=== PATIENT | male | born 1990 | race Caucasian/White ===

== ENCOUNTER 2024-12-14 20:25 | Emergency (ER) | payer MEDICAID ==
[~2024-12-14] VITALS: Ht 177.8 cm; Wt 78.0 kg
[2024-12-14 20:56] VITALS: O2SAT 99
[2024-12-14 21:51] VITALS: BP 122/78; PULSE 69; RESP 16; TEMP 36.9; O2SAT 100
[2024-12-15 00:04] LABS: BASOPHILS % 0.5 % (0.0-2.0); EOSINOPHILS % 0.4 % (0.0-5.0); HEMATOCRIT. 46.9 % (42.0-52.0); HEMOGLOBIN. 15.7 g/dL (14.0-18.0); LYMPHOCYTES % 13.7 % (20.0-50.0); MEAN CORPUSCULAR HEMOGLOBIN 30.3 pg (28.0-32.0); MEAN CORPUSCULAR HGB CONC 33.5 g/dL (31.0-37.0); MEAN CORPUSCULAR VOLUME 90.6 fL (80.0-94.0); MEAN PLATELET VOLUME 7.9 fl (7.4-10.4); MONOCYTES % 9.7 % (2.0-8.0); NEUTROPHILS % 75.7 % (40.0-76.0); PLATELET 302 x1000/uL (130-400); RED BLOOD CELL COUNT 5.17 mill/uL (4.7-6.1); RED CELL DISTRIBUTION WIDTH 12.7 % (11.6-14.6); WHITE BLOOD COUNT 12.5 x1000/uL (4.5-11.0)
[2024-12-15 00:18] LABS: CHLORIDE 98 mEq/L (98-107); POTASSIUM 3.9 mEq/L (3.5-5.1); SODIUM 139 mEq/L (136-145)
[2024-12-15 00:19] LABS: CALCIUM 9.8 mg/dL (8.7-10.4); CARBON DIOXIDE 34 mEq/L (21-32)
[2024-12-15 00:24] LABS: CREATININE 0.9 mg/dL (0.6-1.3); GLUCOSE 104 mg/dL (70-105); UREA NITROGEN BLOOD 8 mg/dL (9-23)
[2024-12-15 00:25] LABS: ETHANOL BLOOD < 10 mg/dL (<10)
[2024-12-15 00:26] LABS: ALANINE AMINOTRANSFERASE 27 IU/L (10-49); ALBUMIN 5.2 g/dL (3.2-4.8); ASPARTATE AMINOTRANSFERASE 19 IU/L (<34); BILIRUBIN DIRECT 0.2 mg/dL (<=3.0); BILIRUBIN TOTAL 0.7 mg/dL (0.1-1.0); PROTEIN TOTAL 7.8 g/dL (6.0-8.3)
[2024-12-15] MEDS: ONDANSETRON HCL 4MG/2ML INJ IM ONE (00:29)
[2024-12-15] MEDS: DICYCLOMINE HCL 10MG/ML 2ML VIAL IM ONE (00:29)
[2024-12-15] MEDS ORDERED: FAMO-135 MT (00:44)
[2024-12-15] MEDS ORDERED: MAG-55 MT (00:44)
== END 2024-12-15 01:00 | disposition home or self-care (01) ==
LOC: ER 20:25
DX: K29.70 Gastritis, unspecified, without bleeding (principal)
CPT/HCPCS: 80076; 80048; 80320; 83690; 85025; 36415; 99284; 96372; J0500; J2405; G0480

== ENCOUNTER 2024-12-19 12:29 | Emergency (ER) | payer MEDICAID ==
[~2024-12-19] VITALS: Ht 177.8 cm; Wt 77.1 kg
[~2024-12-19 12:29] MED LIST: FAMO-135 MT; MAG-55 MT
[2024-12-19 12:31] VITALS: O2SAT 99
[2024-12-19 12:51] VITALS: BP 115/69; PULSE 82; RESP 16; TEMP 36.6; O2SAT 100
[2024-12-19] MEDS: ACETAMINOPHEN 325MG TABLET PO ONE (14:51)
[2024-12-19] MEDS ORDERED: ACET-2708 MT (15:35)
== END 2024-12-19 15:50 | disposition home or self-care (01) ==
LOC: ER 12:29
DX: M25.562 Pain in left knee (principal); W18.30XA Fall on same level, unspecified, initial encounter; Y93.89 Activity, other specified; Y92.89 Other specified places as the place of occurrence of the external cause; Y99.8 Other external cause status
CPT/HCPCS: 73560; 99283; Z7610; L1830

== ENCOUNTER 2025-01-14 12:26 | Emergency (ER) | payer MEDICAID ==
[~2025-01-14] VITALS: Ht 175.3 cm; Wt 70.0 kg
[~2025-01-14 12:26] MED LIST changes: +ACET-2708 MT
[2025-01-14 12:42] VITALS: TEMP 37.2; O2SAT 100
[2025-01-14] MEDS ORDERED: ACET-2708 MT (13:36)
[2025-01-14] MEDS ORDERED: NAPR-1129 MT (13:36)
[2025-01-14 13:57] VITALS: BP 122/68; PULSE 83; RESP 16; O2SAT 100
== END 2025-01-14 14:03 | disposition home or self-care (01) ==
LOC: ER 12:26
DX: M25.562 Pain in left knee (principal)
CPT/HCPCS: 99282; Z7610

== ENCOUNTER 2025-03-08 09:33 | Emergency (ER) | payer MEDICAID ==
[~2025-03-08] VITALS: Ht 175.3 cm; Wt 75.0 kg
[~2025-03-08 09:33] MED LIST changes: +NAPR-1129 MT
[2025-03-08 09:41] VITALS: O2SAT 99
[2025-03-08 10:08] LABS: BASOPHILS % 0.4 % (0.0-2.0); EOSINOPHILS % 0.3 % (0.0-5.0); HEMATOCRIT. 40.9 % (42.0-52.0); HEMOGLOBIN. 13.7 g/dL (14.0-18.0); LYMPHOCYTES % 10.0 % (20.0-50.0); MEAN PLATELET VOLUME 7.1 fl (7.4-10.4); MONOCYTES % 11.1 % (2.0-8.0); NEUTROPHILS % 78.2 % (40.0-76.0); PLATELET 315 x1000/uL (130-400); RED BLOOD CELL COUNT 4.59 mill/uL (4.7-6.1); RED CELL DISTRIBUTION WIDTH 12.8 % (11.6-14.6)
[2025-03-08] MEDS: ONDANSETRON HCL 4MG/2ML INJ IV STA (10:08)
[2025-03-08] MEDS: MORPHINE SULFATE 4 MG/ML INJ (FOR IV/IM USE) IV STA (10:08)
[2025-03-08 10:20] LABS: INR 1.0
[2025-03-08 10:24] LABS: CREATININE 0.9 mg/dL (0.6-1.3); UREA NITROGEN BLOOD 18 mg/dL (9-23)
[2025-03-08] MEDS ORDERED: OXYC-100 MT (13:56)
[2025-03-08] MEDS: OXYCODONE HCL/ACETAMINOPHEN 5/325MG TABLET PO ONE (14:19)
[2025-03-08 15:10] VITALS: BP 128/63; PULSE 58; RESP 14; TEMP 36.4; O2SAT 99
== END 2025-03-08 15:30 | disposition home or self-care (01) ==
LOC: ER 09:44 → CMPBEDREQ 17:32
DX: S82.001A Unspecified fracture of right patella, initial encounter for closed fracture (principal); Z79.899 Other long term (current) drug therapy; X58.XXXA Exposure to other specified factors, initial encounter; Y93.89 Activity, other specified; Y92.89 Other specified places as the place of occurrence of the external cause; Y99.8 Other external cause status
CPT/HCPCS: 99285; 96374; 29505; 73700; 96375; 80048; 85025; 85610; 36415; 73560; 73590; J2405; J2270

== ENCOUNTER 2025-03-18 10:05 | Emergency (ER) | payer MEDICAID ==
[~2025-03-18] VITALS: Ht 180.3 cm; Wt 72.0 kg
[~2025-03-18 10:05] MED LIST changes: +OXYC-100 MT
[2025-03-18 10:10] VITALS: TEMP 36.7; O2SAT 97
[2025-03-18] MEDS ORDERED: ACET-2708 MT (10:55)
[2025-03-18] MEDS ORDERED: IBUP-2028 MT (10:55)
[2025-03-18] MEDS: KETOROLAC 15MG/ML VIAL IM ONE (11:08)
[2025-03-18 11:15] VITALS: BP 133/69; PULSE 66; RESP 18; O2SAT 99
== END 2025-03-18 11:08 | disposition home or self-care (01) ==
LOC: ER 10:05
DX: M25.561 Pain in right knee (principal); Z76.0 Encounter for issue of repeat prescription; Z79.899 Other long term (current) drug therapy
CPT/HCPCS: 96372; 99283; J1885; Z7610

== ENCOUNTER 2025-06-01 21:51 | Emergency (ER) | payer MEDICAID ==
[~2025-06-01] VITALS: Ht 177.8 cm; Wt 75.0 kg
[~2025-06-01 21:51] MED LIST changes: +IBUP-2028 MT
[2025-06-01 22:02] VITALS: O2SAT 98
[2025-06-01] MEDS ORDERED: IBUP-1455 MT (22:52)
[2025-06-01] MEDS ORDERED: CYCL10TA21 MT (22:52)
[2025-06-01] MEDS: CYCLOBENZAPRINE 10MG TABLET PO ONE (23:39)
[2025-06-01] MEDS: IBUPROFEN 600MG TABLET PO ONE (23:40)
[2025-06-01] MEDS: CYCLOBENZAPRINE 10MG TABLET PO NR (23:40)
[2025-06-01] MEDS: IBUPROFEN 600MG TABLET PO NR (23:41)
[2025-06-01 23:44] VITALS: BP 112/70; PULSE 98; RESP 16; TEMP 36.7; O2SAT 96
== END 2025-06-01 23:48 | disposition home or self-care (01) ==
LOC: ER 21:51
DX: M25.562 Pain in left knee (principal); W19.XXXA Unspecified fall, initial encounter; Y93.89 Activity, other specified; Y92.89 Other specified places as the place of occurrence of the external cause; Y99.8 Other external cause status
CPT/HCPCS: 29505; 73560; 99283